=== PATIENT | female | born 1960 | race Caucasian/White ===

== ENCOUNTER → 2022-02-26 11:35 | Outpatient (BNVA) | payer SELFPAY | PROVIDERS: PCP Nurse Practitioner Family; Visit Provider Nurse Practitioner Family | DX: I10 Essential (primary) hypertension (principal); R53.83 Other fatigue; I87.2 Venous insufficiency (chronic) (peripheral) | CPT/HCPCS: 80053; 80061; 84443 ==

== ENCOUNTER 2023-10-23 01:11 | Emergency (ER) | payer SELFPAY ==
[2023-10-23 01:17] VITALS: BP 185/83; PULSE 119; RESP 18; TEMP 39.5; O2SAT 97; BMI 48.7
--- NOTE | 2023-10-23 01:35 | XRR_ITS ---
PROCEDURE INFORMATION: Exam: XR Chest Exam date and time: 10/23/2023 2:18 AM Age: 63 years old Clinical indication: Shortness of breath; Patient HX: SOB with tachycardia TECHNIQUE: Imaging protocol: Radiologic exam of the chest. Views: 1 view. COMPARISON: No relevant prior studies available. FINDINGS: Lungs: Suspect mild pulmonary vascular congestion. Mild perihilar opacities bilaterally, with slight peribronchial thickening. While nonspecific, the overall appearance raises suspicion for mild CHF/interstitial pulmonary edema. Some type of bronchitis/pneumonitis might also be considered. Please correlate clinically. Pleural spaces: No visible pneumothorax. No definite pleural fluid. Heart/Mediastinum: Heart size is within normal limits. Bones/joints: No significant acute finding. XR/XR chest 1V portable [id number] IMPRESSION: 1. Mild bilateral perihilar lung opacities, see above discussion. 2. Other findings discussed above.
[2023-10-23] MEDS: acetaminophen 500 mg Tablet 1000 MG PO (02:17)
--- NOTE | 2023-10-23 02:20 | ED_ITS ---
HPI - General Adult 2 General: Chief complaint: General Medical Stated complaint: sudden tremors arms and hands SOB Time Seen by Provider: 10/23/23 02:08 Source: patient Mode of arrival: ambulatory Limitations: no limitations History of Present Illness: 63-year-old female states that laura s he has been having a fever with some dyspnea she states she is having shaking as well denies any pain. She denies any worsening proving factors. She denies any vomiting or diarrhea. Associated symptoms: Reports dyspnea; Deny chest pain, headache(s), nausea, rash or vomiting Review of Systems 2 Const: Reports: fever(s) and chills; Denies: body aches or change in appetite Eyes: Denies: blurry vision or eye discomfort ENMT: Denies: throat pain or dental pain Card: Denies: chest pain Resp: Reports: dyspnea GI: Denies: abdominal pain, nausea, vomiting or diarrhea : Denies: dysuria Musc: Denies: neck pain or back pain Skin/Breast: Denies: rash Neuro: Denies: headache(s) PFSH ED 2 PFSH: Surgical History Hx of tubal ligation Social History Smoking and tobacco/nicotine status: never used tobacco/nicotine Second hand smoke exposure: No Alcohol intake: never Substance/Drug Use: never Physical Exam 2 Const: COMMON NORMALS: no acute distress, patient oriented x3 and healthy appearing HENMT: COMMON NORMALS: normocephalic and atraumatic HEAD & SCALP: n ormocephalic and atraumatic Eye: COMMON NORMALS: Equal, round and reactive pupils present and EOMs intact bilaterally PUPIL: Yes Equal, round and reactive pupils present Neck/C-Spine: COMMON NORMALS: full ROM and supple Chest: COMMONS NORMALS: normal inspection of the chest Resp: COMMON NORMALS: normal respiratory effort and clear to auscultation bilaterally AUSCULTATION: clear to auscultation bilaterally Cardio: COMMON NORMALS: regular rate, regular rhythm and No murmurs present (Cardio) RATE: regular rate RHYTHM: regular rhythm GI: COMMON NORMALS: Normal to inspection, nondistended, normoactive bowel sounds present, Soft to palpation, non-tender and no masses PALPATION: Yes Soft to palpation Extremity: COMMON NORMALS: normal to inspection and full ROM Neuro: COMMON NORMALS: patient oriented x3, moves all extremities and no focal motor deficits Psych: COMMON NORMALS: mental status grossly normal, Normal thought process present and cooperative THOUGHT PROCESS: Normal thought process present Skin: COMMON NORMALS: no rashes or lesions noted and no wounds GENERAL SKIN EXAM: no rashes or lesions noted Course 2 Vital Signs: Vital signs: Vital Signs Temperature 99.2 F 10/23/23 03:50 Pulse Rate 113 H 10/23/23 02:34 Respiratory Rate 16 10/23/23 02:34 Blood Pressure 147/68 10/23/23 03:50 Pulse Oximetry 97 10/23/23 02:34 Oxygen Delivery Me thod Room Air 10/23/23 01:17 MDM - General Adult Medical Decision Making Patient presents here with fever slight dyspnea x-ray showed a mild pneumonia she is well-appearing here her temperature improved no signs of sepsis feel she stable for discharge we will start her on Keflex she is to follow-up with her PCP and return if worsening. Medical Records I reviewed the patient's medical records. Lab Data I reviewed the patient's lab results. 10/23/23 02:15 10/23/23 02:15 Radiology Impressions Chest X-Ray 10/23/23 01:35 IMPRESSION: 1. Mild bilateral perihilar lung opacities, see above discussion. 2. Other findings discussed above. Laboratory Results WBC 11.75 10^3/uL (3.29-11.43) H 10/23/23 02:15 RBC 4.42 10^6/uL (3.85-5.65) 10/23/23 02:15 Hgb 12.50 g/dL (11.27-16.99) 10/23/23 02:15 Hct 37.1 % (36-47) 10/23/23 02:15 MCV 83.9 fl (85-98) L 10/23/23 02:15 MCH 28.3 pg (27-33) 10/23/23 02:15 MCHC 33.7 g/dL (30-55) 10/23/23 02:15 RDW 13.4 % (12.1-15.1) 10/23/23 02:15 Plt Count 212 10^3/cmm (157-399) 10/23/23 02:15 MPV 9.3 fL (7.4-10.4) 10/23/23 02:15 Neut % (Auto) 92.3 % 10/23/23 02:15 Lymph % (Auto) 3.2 % 10/23/23 02:15 [place] % (Auto) 3.2 % 10/23/23 02:15 Eos % (Auto) 0.6 % 10/23/23 02:15 Baso % (Auto) 0.3 % 10/23/23 02:15 Neut # (Auto) 10.84 10^3/uL (1.8-7.7) H 10/23/23 02:15 Lymph # (Auto) 0.4 10^3/uL (0.8-4.8) L 10/23/23 02:15 [place] # (Auto) 0.4 10^3/uL (0.2-0.9) 10/23/23 02:15 Eos # (Auto) 0.1 10^3/uL (0.0-0.8) 10/23/23 02:15 Baso # (Auto) 0.0 10^3/uL (0.0-0.1) 10/23/23 02:15 Nucleated RBC % (auto) 0 % 10/23/23 02:15 Nucleated RBCs # 0.0 /100WBC 10/23/23 02:15 Sodium 135 mmol/L (136-145) L 10/23/23 02:15 Potassium 3.8 mmol/L (3.5-5.1) 10/23/23 02:15 Chloride 96 mmol/L (98-107) L 10/23/23 02:15 Carbon Dioxide 29 mmol/L (22-29) 10/23/23 02:15 Anion Gap 13.8 (5-19) 10/23/23 02:15 BUN 22 mg/dL (8-23) 10/23/23 02:15 Creatinine 0.7 mg/dL (0.5-0.9) 10/23/23 02:15 GFR Calculation 84.8 mL/min (90-130) L 10/23/23 02:15 Glucose 265 mg/dL (65-115) H 10/23/23 02:15 Calculated Osmolality 293 mOsm/kg (285-295) 10/23/23 02:15 Lactic Acid 1.1 mmol/L (0.5-2.2) 10/23/23 02:15 Calcium 10.0 mg/dL (8.5-10.5) 10/23/23 02:15 Total Bilirubin 0.9 mg/dL (0.15-1.2) 10/23/23 02:15 AST 17 U/L (0-32) 10/23/23 02:15 ALT 15 U/L (0-33) 10/23/23 02:15 Alkaline Phosphatase 126 U/L (35-105) H 10/23/23 02:15 NT-Pro-B Natriuret Pep 321 pg/mL (0-125) H 10/23/23 02:15 Total Protein 7.2 g/dL (6.6-8.7) 10/23/23 02:15 Albumin 3.9 g/dL (3.5-5.2) 10/23/23 02:15 Globulin 3.3 g/dL (1.3-4.6) 10/23/23 02:15 Urine Color Yellow (Yellow) 10/23/23 02:25 Urine Appearance Hazy (CLEAR) A 10/23/23 02:25 Urine pH 8 (5-7) H 10/23/23 02:25 Ur Specific [place] 1.020 (1.005-1.030) 10/23/23 02:25 Urine Protein 3+ (Negative) H 10/23/23 02:25 Urine Glucose (UA) Norm (Normal) 10/23/23 02:25 Urine Ketones Negative (Negative) 10/23/23 02:25 Urine Blood 2+ (Negative) H 10/23/23 02:25 Urine Nitrate Negative (Negative) 10/23/23 02:25 Urine Bilirubin Neg (Negative) 10/23/23 02:25 Prot Sulfosalicylic Acd Positive (Negative) 10/23/23 02:25 Urine Urobilinogen Norm mg/dL (Negative) 10/23/23 02:25 Ur Leukocyte Esterase Trace (Negative) H 10/23/23 02:25 Urine RBC 5-10 /hpf (0-2) H 10/23/23 02:25 Urine WBC 15-25 /hpf (0-5) H 10/23/23 02:25 Ur Squamous Epith Cells 5-10 /hpf (0-5) H 10/23/23 02:25 Amorphous Sediment Trace /hpf 10/23/23 02:25 Urine Bacteria Trace /hpf (NONE) 10/23/23 02:25 Hyaline Casts 0-4 /lpf H 10/23/23 02:25 Urine Mucus 1+ /hpf 10/23/23 02:25 Influenza Type A Ag Negative (Negative) 10/23/23 02:36 Influenza Type B Ag Negative (Negative) 10/23/23 02:36 SARS-CoV-2 Ag (Rapid) Negative (Negative) 10/23/23 02:36 All radiology interpretation(s) finalized by discharge Discharge Plan Discharge Patient Disposition: Home Clinical Impression: Pneumonia Condition: Stable Prescriptions: New cephalexin 500 mg capsule 500 mg PO TID 7 Days Qty: 21 0RF No Action metformin 500 mg tablet See Rx Instructions .ROUTE .COMPLEX Qty: 90 0RF Dose Instruction: Take 1 tablet by mouth once daily Rx Instructions: Take 1 tablet by mouth once daily hydrochlorothiazide 25 mg tablet See Rx Instructions .ROUTE .COMPLEX Qty: 30 0RF Dose Instruction: Take 1 tablet by mouth once daily Rx Instructions: Take 1 tablet by mouth once daily levothyroxine 25 mcg tablet See Rx Instructions .ROUTE .COMPLEX Qty: 90 0RF Dose Instruction: Take 1 tablet by mouth once daily Rx Instructions: Take 1 tablet by mouth once daily Discharge Orders: Discharge ED (Routine); Ordered 10/23/23 Ordered By: Tae Pride Referrals: Flor Brown, [facility]OST [Primary Care Provider] - 4-7 days Discharge Diet: Advance as tolerated Discharge Activity: Resume usual activity Patient Instructions: Pneumonia (ED) Coding Level of Care Code ED [employer] for Rafael Baptiste
[2023-10-23 02:30] LABS: Basophils % 0.3 %; Eosinophils # 0.1 10^3/uL (0.0-0.8); Eosinophils % 0.6 %; Hematocrit 37.1 % (36-47); Lymphocytes # 0.4 10^3/uL (0.8-4.8); Lymphocytes % 3.2 %; Mean Corpuscular HGB Conc 33.7 g/dL (30-55); Mean Corpuscular Hemoglobin 28.3 pg (27-33); Mean Corpuscular Volume 83.9 fl (85-98); Mean Platelet Volume 9.3 fL (7.4-10.4); Monocytes # 0.4 10^3/uL (0.2-0.9); Monocytes % 3.2 %; Neutrophils # 10.84 10^3/uL (1.8-7.7); Neutrophils % 92.3 %; Nucleated Red Blood Cells % 0 %; Platelet Count 212 10^3/cmm (157-399); Red Blood Count 4.42 10^6/uL (3.85-5.65); Red Cell Distribution Width 13.4 % (12.1-15.1); White Blood Count 11.75 10^3/uL (3.29-11.43)
[2023-10-23 02:34] VITALS: BP 193/100; PULSE 113; RESP 16; O2SAT 97
[2023-10-23] MEDS: sodium chloride 0.9% 1,000 ML 999 ML IV (02:36)
[2023-10-23 02:46] LABS: Lactic Sepsis W/Reflex 1.1 mmol/L (0.5-2.2)
[2023-10-23 02:46] LABS: Urine Appearance Hazy (CLEAR); Urine Color Yellow (Yellow); pH Urine 8 (5-7)
[2023-10-23 02:47] LABS: Add Urine Microscopic? YES; Bilirubin Urine Neg (Negative); Blood Urine 2+ (Negative); Glucose Urine UA Norm (Normal); Ketones Urine Negative (Negative); Leukocyte Esterase Urine Trace (Negative); Nitrate Urine Negative (Negative); Protein Urine 3+ (Negative); Sulfosalicylic Acid Urine Positive (Negative); Urobilinogen Urine Norm (Negative)
[2023-10-23 02:49] LABS: Bacteria Urine TRACE /hpf; WBC Urine 15-25 /hpf (0-5)
[2023-10-23 02:50] LABS: Amorphous Sediment Urine TRACE /hpf; Hyaline Casts Urine 0-4 /lpf; Mucus Urine 1+ /hpf
[2023-10-23 02:56] LABS: Alanine Aminotransferase 15 U/L (0-33); Albumin Level 3.9 g/dL (3.5-5.2); Alkaline Phosphatase 126 U/L (35-105); Anion Gap 13.8 (5-19); Aspartate Amino Transferase 17 U/L (0-32); Blood Urea Nitrogen 22 mg/dL (8-23); Carbon Dioxide 29 mmol/L (22-29); Chloride 96 mmol/L (98-107); Globulin 3.3 g/dL (1.3-4.6); Glomerular Filtration Rate 84.8 mL/min (90-130); Glucose 265 mg/dL (65-115); NT Pro B Type Natriuretic Pept 321 pg/mL (0-125); Osmolality Calculated 293 mOsm/kg (285-295); Potassium 3.8 mmol/L (3.5-5.1); Sodium 135 mmol/L (136-145); Total Bilirubin 0.9 mg/dL (0.15-1.2); Total Protein 7.2 g/dL (6.6-8.7)
[2023-10-23 03:02] LABS: Influenza A by IFA Negative (Negative); Influenza B by IFA Negative (Negative); SARS Covid-2 Antigen Negative (Negative)
[2023-10-23 03:16] VITALS: BP 152/106
[2023-10-23 03:50] VITALS: BP 147/68; TEMP 37.3
[2023-10-23] MEDS: cephALEXin 500 mg Capsule PO (04:17)
== END 2023-10-23 04:20 | disposition home or self-care (01) ==
PROVIDERS: Emergency Provider Emergency Medicine; PCP Nurse Practitioner Family
DX: J18.9 Pneumonia, unspecified organism (principal); Z79.84 Long term (current) use of oral hypoglycemic drugs; Z11.52 Encounter for screening for COVID-19
CPT/HCPCS: 36415; 71045; 80053; 81001; 83605; 83880; 85025; 87426; 87804; 96360; 99284; J7030

== ENCOUNTER 2024-08-12 08:37 | Emergency (ER) | payer SELFPAY ==
[2024-08-12 08:49] VITALS: BP 152/109; PULSE 88; RESP 18; TEMP 36.9; O2SAT 97; BMI 46.6
--- NOTE | 2024-08-12 09:06 | USR_ITS ---
PROCEDURE INFORMATION: Exam: US Duplex Left Lower Extremity Veins, Limited Exam date and time: 08/12/2024 9:27 AM Age: 64 years old Clinical indication: Pain; Leg, lower; Left; Additional info: Calf pain TECHNIQUE: Imaging protocol: Real-time duplex ultrasound of the left extremity with 2-D oliver scale, color Doppler flow and spectral waveform analysis including responses to compression and other maneuvers (when performed) with image documentation. Limited exam focused on the left lower extremity veins. COMPARISON: No relevant prior studies available. FINDINGS: Left deep veins: Unremarkable. The common femoral, femoral, proximal profunda femoral and popliteal veins are patent without thrombus. Normal Doppler waveforms. Normal compressibility and augmentation response. Superficial veins: Greater saphenous vein at the saphenofemoral junction is patent without thrombus. Soft tissues: Medial proximal-mid leg fluid hypoechoic collection with sound transmission and low-medium level internal echoes, with surrounding soft tissue echogenic adipose edema US/CV venous duplex [facility] [id number] IMPRESSION: No evidence of deep vein thrombosis. Complicated Page cyst versus hematoma of the lower leg.
[2024-08-12 09:09] VITALS: BP 152/109; PULSE 88; RESP 18; TEMP 36.9; O2SAT 97
--- NOTE | 2024-08-12 09:09 | ED_ITS ---
HPI - Extremity Problem 2 General: Chief complaint: Extremity Problem,Nontraumatic Stated complaint: left leg pain and swelling Time Seen by Provider: 08/12/24 08:49 Source: patient and family Mode of arrival: ambulatory Limitations: no limitations History of Present Illness: This patient made her way to the emergency department this morning because of concern about left calf pain and swelling. She states that she noted current symptoms of have progressed since her last exercise session approximately 2 days ago. She states that this is completed under the direction of her therapist and does involve lower extremity movements such as squats leg raising etc. She states she did not feel any pain or discomfort during a period of her exercise. Over the past couple days she has noted soreness in the posterior left calf with some subjective swelling and perceived soreness. She denies any redness or fever. She denies any difficulty with other symptoms such as shortness of breath fever chills etc. She does have a history of diet-controlled diabetes as well as hyperparathyroidism. She is not taking any medications currently. She has not had any other issues such as vomiting diarrhea or any other symptoms that would suggest fluid loss. She states that she has not previously had any history of thromboembolic disease. MD Complaint: extremity pain and extremity swelling Location: left and lower extremity Associated symptoms: Deny chest pain, fever(s) or rash Related Data Previous Rx's Medication Instructions Recorded hydrochlorothiazide 25 mg tablet See Rx Instructions .Route 05/20/22 .COMPLEX #30 tabs levothyroxine 25 mcg tablet See Rx Instructions .Route 05/20/22 .COMPLEX #90 tabs metformin 500 mg tablet See Rx Instructions .Route 05/20/22 .COMPLEX #90 tabs Allergies Allergy/AdvReac Type Severity Reaction Status Date / Time No Known Allergies Allergy Unverified 03/02/22 08:28 Review of Systems 2 Const: Denies: fever(s) or chills ENMT: Denies: throat pain, odynophagia, nasal discharge or nasal congestion Card: Denies: chest pain, palpitations, irregular heart rhythm or syncope Resp: Denies: dyspnea, productive cough or non-productive cough GI: Denies: abdominal pain : Denies: flank pain, difficulty voiding or dysuria Musc: Reports: extremity pain and extremity swelling; Denies: neck pain, back pain, joint pain or joint swelling Skin/Breast: Denies: rash, pruritus or erythema Neuro: Denies: headache(s), numbness in extremities or weakness in extremities [place]/Lymph: Denies: easy bruising or easy bleeding PFSH ED 2 PFSH: Surgical History Hx of tubal ligation Social History Smoking and tobacco/nicotine status: never used tobacco/nicotine Second hand smoke exposure: No Alcohol intake: never Substance/Drug Use: never Physical Exam 2 Narrative: EXAM NARRATIVE: She is pleasant and interactive and appears to be in no acute distress Const: COMMON NORMALS: no acute distress, patient oriented x3 and alert G ENERAL APPEARANCE: cooperative and comfortable NUTRITIONAL APPEARANCE: obese HENMT: COMMON NORMALS: normocephalic and Normal nasal mucous membranes and turbinates present HEAD & SCALP: normocephalic NOSE: Normal nasal mucous membranes and turbinates present Eye: COMMON NORMALS: Equal, round and reactive pupils present PUPIL: Yes Equal, round and reactive pupils present Neck/C-Spine: COMMON NORMALS: full ROM and no lymphadenopathy Resp: COMMON NORMALS: normal respiratory effort and No use of accessory muscles EFFORT & INSPECTION: Yes able to speak in complete sentences Cardio: COMMON NORMALS: regular rate and Peripheral pulses 2+ throughout R ATE: regular rate PERIPHERAL PULSES: Peripheral pulses 2+ throughout : COMMON NORMALS: Yes no CVA tenderness BLADDER/KIDNEY EXAM: Yes no CVA tenderness Back/Pelvis: COMMON NORMALS: no CVA tenderness and straight leg raise negative bilaterally Extremity: GENERAL: Yes normal exam except as noted OTHER: Extremity examination with attention of the left lower extremity reveals normal- appearing lower extremities she does have what appears to be symmetrical sized lower extremities. There is no evidence of redness discoloration or other skin findings noted. She has firmness and palpable tenderness in the posterior left mid and superior calf. She has a negative Homans. She has no other skin findings or decreased pulses in the lower extremities. She has palpable dorsalis pedis and posterior tibial and good capillary refill. The ankle joint is unremarkable and has no tenderness or laxity. The knee joint shows no effusions. There is no laxity to varus or valgus stress she has negative anterior and posterior drawer. The left hip has no restriction of range of motion or tenderness. There is no tenderness to palpation in the left thigh. Neuro: COMMON NORMALS: patient oriented x3, moves all extremities, no focal motor deficits and no sensory deficits noted SENSORIUM/ORIENTATION: Yes alert Psych: COMMON NORMALS: mental status grossly normal Skin: COMMON NORMALS: no rashes or lesions noted, no wounds and turgor normal GENERAL SKIN EXAM: no rashes or lesions noted and turgor normal Course 2 Reevaluation(s): Reevaluation #1: Patient stable and unchanged. Discussed current findings their implications and limitations and expected course of both she and family. At this point no evidence of a DVT. Her D-dimer slightly elevated is likely due to this being a possible hematoma as noted in ultrasound report however more likely a Page's cyst. Also discussed return precautions. Time: 11:28 Vital Signs: Vital signs: Vital Signs Temperature 98.4 F 08/12/24 09:09 Pulse Rate 67 08/12/24 11:05 Respiratory Rate 18 08/12/24 09:09 Blood Pressure 179/87 08/12/24 11:05 Pulse Oximetry 97 08/12/24 11:05 Oxygen Delivery Me thod Room Air 08/12/24 11:05 MDM - Extremity (Nontraumatic) Medical Decision Making This patient presented as noted in the HPI. Particular concern was about a possible DVT. She does engage in regular exercise program with the physical therapist. Clinical exam was nonspecific there was notable tenderness in the superior calf extending into the post anterior fossa of the left knee. There is no evidence of significant effusion anteriorly but she has large soft tissue. D-dimer was slightly elevated and ultrasound was obtained which did not reveal any evidence of a DVT but did show likely Page's cyst although there was an inclusion of possible hematoma in the superior gastroc region. She has no evidence of an internal derangement of her knee at this time there is no laxity disruption in any of her muscular function etc. No evidence of trauma to suggest the latter. At this point no evidence of an ongoing emergency medical condition. We discussed expected course and follow-up considerations. Also discussed hot and cold therapy to the area. Lab Data I reviewed the patient's lab results. 08/12/24 09:14 Radiology Impressions Venous Duplex 08/12/24 09:06 IMPRESSION: No evidence of deep vein thrombosis. Complicated Page cyst versus hematoma of the lower leg. Laboratory Results D-Dimer 0.79 ug/mLFEU (0-0.59) H 08/12/24 09:14 Sodium 140 mmol/L (136-145) 08/12/24 09:14 Potassium 4.0 mmol/L (3.5-5.1) 08/12/24 09:14 Chloride 103 mmol/L (98-107) 08/12/24 09:14 Carbon Dioxide 27 mmol/L (22-29) 08/12/24 09:14 Anion Gap 14.0 (5-19) 08/12/24 09:14 BUN 26 mg/dL (8-23) H 08/12/24 09:14 Creatinine 0.6 mg/dL (0.5-0.9) 08/12/24 09:14 GFR Calculation 101.0 mL/min (90-130) 08/12/24 09:14 Glucose 195 mg/dL (65-115) H 08/12/24 09:14 Calculated Osmolality 300 mOsm/kg (285-295) H 08/12/24 09:14 Calcium 9.2 mg/dL (8.5-10.5) 08/12/24 09:14 All radiology interpretation(s) finalized by discharge Discharge Plan Discharge Patient Disposition: Home Clinical Impression: Page's cyst of knee Qualifiers: Laterality: left Qualified Code(s): M71.22 - Synovial cyst of popliteal space [Page], left knee Condition: Stable Prescriptions: No Action metformin 500 mg tablet See Rx Instructions .ROUTE .COMPLEX Qty: 90 0RF Dose Instruction: Take 1 tablet by mouth once daily Rx Instructions: Take 1 tablet by mouth once daily hydrochlorothiazide 25 mg tablet See Rx Instructions .ROUTE .COMPLEX Qty: 30 0RF Dose Instruction: Take 1 tablet by mouth once daily Rx Instructions: Take 1 tablet by mouth once daily levothyroxine 25 mcg tablet See Rx Instructions .ROUTE .COMPLEX Qty: 90 0RF Dose Instruction: Take 1 tablet by mouth once daily Rx Instructions: Take 1 tablet by mouth once daily Discharge Orders: Discharge ED (Routine); Ordered 08/12/24 Ordered By: Nando Andrews Discharge Diet: Usual diet Discharge Activity: Increase activity as tolerated Patient Instructions: Opioid Safety, Pain Management Activity Restrictions/Additional Instructions: As we discussed while you are in the emergency department you do not have an evidence of a blood clot in your left leg at this time. You do have a condition which is likely due to a Page's cyst which is a collection of fluid in a sac behind your knee and in your upper or lower leg. We recommend hot and cool packs as we discussed in the emergency department. He may resume a graduated activity program with your therapist. If you develop worsening symptoms that, the condition does not improve, you develop any new or concerning symptoms you should return to the emergency department for reevaluation. Coding Level of Care Code ED [employer] for Rafael Baptiste
[2024-08-12 09:37] LABS: D Dimer 0.79 ug/mLFEU (0-0.59)
[2024-08-12 09:43] LABS: Blood Urea Nitrogen 26 mg/dL (8-23); Calcium 9.2 mg/dL (8.5-10.5); Carbon Dioxide 27 mmol/L (22-29); Chloride 103 mmol/L (98-107); Creatinine Clr Calc Pharmacy 133.3471; Glucose 195 mg/dL (65-115); Osmolality Calculated 300 mOsm/kg (285-295); Sodium 140 mmol/L (136-145)
[2024-08-12 10:26] VITALS: BP 174/105; PULSE 70; O2SAT 96
[2024-08-12 10:31] VITALS: BP 185/74; PULSE 70; O2SAT 95
[2024-08-12 11:05] VITALS: BP 179/87; PULSE 67; O2SAT 97
[2024-08-12 11:44] VITALS: BP 179/80; PULSE 69; O2SAT 96
== END 2024-08-12 11:45 | disposition home or self-care (01) ==
PROVIDERS: Emergency Provider Emergency Medicine
DX: M71.22 Synovial cyst of popliteal space [Baker], left knee (principal)
CPT/HCPCS: 80048; 85378; 93971; 99284

== ENCOUNTER 2024-10-14 16:59 | Emergency (ER) | payer BC, SELFPAY ==
[2024-10-14] VITALS (8 sets, daily range): BP systolic 163–239; BP diastolic 63–103; PULSE 74–100; RESP 14–18; TEMP 36.7; O2SAT 94–97; BMI 46.5
--- NOTE | 2024-10-14 17:05 | XRR_ITS ---
PROCEDURE INFORMATION: Exam: XR Chest Exam date and time: 10/14/2024 6:24 PM Age: 64 years old Clinical indication: Pain; Chest pressure; Additional info: Cp TECHNIQUE: Imaging protocol: Radiologic exam of the chest. Views: 1 view. COMPARISON: CR XR chest 1V portable [id number] 10/23/2023 2:18 AM FINDINGS: Lungs: Unremarkable. No consolidation. Pleural spaces: Unremarkable. No pleural effusion. No pneumothorax. Heart/Mediastinum: Unremarkable. No cardiomegaly. Bones/joints: Unremarkable. XR/XR chest 1V portable [id number] IMPRESSION: No acute findings.
--- NOTE | 2024-10-14 17:08 | ECG_ITS ---
[facility] Date: 2024-10-14 Pat Name: Isidra Bolaños Department: Room: Gender: Female Air Technician: : 1960 Requested By: Tae Pride Order Number: [id number] Saul MD: Mona Trevino M.D. Measurements Intervals [place] Rate: 87 P: 43 WI: 142 QRS: -58 QRSD: 117 T: 61 QT: 359 QTc: 433 Interpretive Statements SINUS RHYTHM WITH OCCASIONAL VENTRICULAR PREMATURE COMPLEXES LEFT ANTERIOR FASCICULAR BLOCK [QRS AXIS <= -45, QR IN I, RS IN II] MODERATE VOLTAGE CRITERIA FOR LVH, CONSIDER NORMAL VARIANT [MEETS CRITERIA IN ONE OF: R(aVL), S(V1), R(V5), R(V5/V6)+S(V1)] No previous ECG available for comparison Electronically Signed On 10-16-2024 23:57:30 ELECTRICAL DESIGNER by Mona Trevino M.D. [email or web address]
[2024-10-14 18:20] LABS: Basophils # 0.1 10^3/uL (0.0-0.1); Basophils % 0.9 %; Eosinophils # 0.3 10^3/uL (0.0-0.8); Eosinophils % 4.4 %; Hematocrit 34.7 % (36-47); Lymphocytes # 1.5 10^3/uL (0.8-4.8); Lymphocytes % 19.3 %; Mean Corpuscular HGB Conc 32.3 g/dL (30-55); Mean Corpuscular Hemoglobin 27.1 pg (27-33); Mean Corpuscular Volume 83.8 fl (85-98); Mean Platelet Volume 9.3 fL (7.4-10.4); Monocytes # 0.6 10^3/uL (0.2-0.9); Monocytes % 8.3 %; Neutrophils # 5.05 10^3/uL (1.8-7.7); Neutrophils % 66.8 %; Nucleated Red Blood Cells % 0 %; Platelet Count 251 10^3/cmm (157-399); Red Blood Count 4.14 10^6/uL (3.85-5.65); Red Cell Distribution Width 13.3 % (12.1-15.1); White Blood Count 7.56 10^3/uL (3.29-11.43)
[2024-10-14 18:35] LABS: D Dimer 0.72 ug/mLFEU (0-0.59)
[2024-10-14 18:39] LABS: Troponin(5th) Baseline 21 ng/L (0-10)
[2024-10-14 18:57] LABS: Alanine Aminotransferase 15 U/L (0-33); Albumin Level 3.5 g/dL (3.5-5.2); Alkaline Phosphatase 162 U/L (35-105); Anion Gap 13.1 (5-19); Aspartate Amino Transferase 18 U/L (0-32); Blood Urea Nitrogen 23 mg/dL (8-23); Carbon Dioxide 28 mmol/L (22-29); Chloride 102 mmol/L (98-107); Creatinine Clr Calc Pharmacy 103.2278; Globulin 2.3 g/dL (1.3-4.6); Glomerular Filtration Rate 72.4 mL/min (90-130); Glucose 141 mg/dL (65-115); NT Pro B Type Natriuretic Pept 919 pg/mL (0-125); Osmolality Calculated 294 mOsm/kg (285-295); Potassium 4.1 mmol/L (3.5-5.1); Sodium 139 mmol/L (136-145); Total Bilirubin 0.2 mg/dL (0.15-1.2); Total Protein 5.8 g/dL (6.6-8.7)
--- NOTE | 2024-10-14 19:08 | ED_ITS ---
HPI - SOB/Dyspnea 2 General: Chief Complaint: Shortness of Breath/Dyspnea Stated Complaint: b/phigh/Sob/swollen L leg Time Seen by Provider: 10/14/24 18:29 Source: patient Mode of arrival: ambulatory Limitations: no limitations History of Present Illness: HPI Narrative: 64yo female presents with family for alex luation of shortness of breath that has been ongoing for the past several days. Patient reports that she woke up with swelling and pain in her left leg. States that she was seen here 2 months ago and diagnosed with a Page's cyst in the leg. Reports that she has been going to the gym and exercising recently and believes she may have injured her patella tendon. States that she has not really done much in the past couple of days. States that she has also been sleeping in more than she typically would. Patient reports that last week when she went to the gym she was noticing that she was more short of breath than typical. Patient also reports that her blood pressure was elevated at home today. States that it was a systolic of 200, but she did not feel bad so she just said it to the side. States that she checked it again this afternoon after changing batteries in the machine and it was still over 200. Patient reports that she does not take any blood pressure medication, but she did many years ago where she believes she took amlodipine. Patient denies cough, difficulty breathing, chest pain, abdominal pain, vomiting, diarrhea, recent illness, any other concerns at this time. Associated symptoms: Deny abdominal pain, chest pain, fever(s) or vomiting Related Data Home Medications Medication Instructions Recorded Confirmed ibuprofen 200 mg tablet (Advil) 600 - 800 mg PO Q6H PRN Pain 08/12/24 08/12/24 Allergies Allergy/AdvReac Type Severity Reaction Status Date / Time No Known Allergies Allergy Verified 10/14/24 17:17 Review of Systems 2 Const: Denies: fever(s) or chills Card: Denies: chest pain Resp: Reports: dyspnea GI: Denies: abdominal pain, vomiting or diarrhea Musc: Reports: extremity swelling (left leg, left arm) Neuro: Denies: headache(s) or weakness in extremities PFSH ED 2 PFSH: Surgical History Hx of tubal ligation Social History Smoking and tobacco/nicotine status: never used tobacco/nicotine Second hand smoke exposure: No Alcohol intake: never Substance/Drug Use: never Physical Exam 2 Const: COMMON NORMALS: no acute distress, patient oriented x3 and alert N UTRITIONAL APPEARANCE: obese ORIENTATION/CONSCIOUSNESS: Yes oriented to time OTHER: Patient is sitting upright on the stretcher no acute distress. She is able to give history with no difficulty she is interactive with exam appropriately. Family is at bedside HENMT: COMMON NORMALS: normocephalic HEAD & SCALP: normocephalic Chest: CHEST: Yes Symmetrical chest wall rise Resp: COMMON NORMALS: normal respiratory effort and clear to auscultation bilaterally EFFORT & INSPECTION: Yes able to speak in complete sentences A USCULTATION: clear to auscultation bilaterally Cardio: COMMON NORMALS: regular rate and regular rhythm RATE: regular rate RHYTHM: regular rhythm Extremity: LEFT UPPER EXTREMITY: Yes upper arm (no appreciable swelling noted) LEFT LOWER EXTREMITY: Yes lower leg (localized swelling to indicated area) EXTREMITY IMAGE (FRONT): 1. localized swelling. Nontender. No erythema Neuro: COMMON NORMALS: patient oriented x3 SENSORIUM/ORIENTATION: Yes alert and Yes oriented to time Psych: COMMON NORMALS: cooperative Course 2 ED course: D-dimer noted to be 0.72. Baseline troponin at 21 with a proBNP of 919. Vital Signs: Vital signs: Vital Signs Temperature 98.0 F 10/14/24 17:13 Pulse Rate 75 10/14/24 21:41 Respiratory Rate 14 10/14/24 21:41 Blood Pressure 184/63 10/14/24 21:41 Pulse Oximetry 94 10/14/24 21:41 Oxygen Delivery Me thod Room Air 10/14/24 17:13 MDM - SOB/Dyspnea Medical Decision Making 64yo female here with family for evaluation of shortness of breath that has been ongoing for the past several days. Patient reports that she woke up with swelling and pain in her left leg. States that she was seen here 2 months ago and diagnosed with a Page's cyst in the leg. Reports that she has been going to the gym and exercising recently and believes she may have injured her patella tendon. States that she has not really done much in the past couple of days. States that she has also been sleeping in more than she typically would. Patient reports that last week when she went to the gym she was noticing that she was more short of breath than typical. Patient also reports that her blood pressure was elevated at home today. States that it was a systolic of 200, but she did not feel bad so she just said it to the side. States that she checked it again this afternoon after changing batteries in the machine and it was still over 200. Patient reports that she does not take any blood pressure medication, but she did many years ago where she believes she took amlodipine. Patient denies cough, difficulty breathing, chest pain, abdominal pain, vomiting, diarrhea, recent illness, any other concerns at this time. Patient is nontoxic in appearance. Vital signs are stable. No leukocytosis. D-dimer is elevated at 0.72. Baseline troponin is noted to be 21 with a 2-hour troponin of 19.3. proBNP is 919. Chest x-ray is grossly unremarkable. EKG does show sinus rhythm with occasional PVC, no change during ED stay. Given the elevated dimer and dyspnea, proceeded with CTA of the chest. CTA is negative for pulmonary embolism and aortic dissection. Discussed these findings with patient. Medical Records I reviewed the patient's medical records. Lab Data I reviewed the patient's lab results. 10/14/24 18:06 10/14/24 18:06 Labs/Radiology: Radiology Impressions Chest X-Ray 10/14/24 17:05 IMPRESSION: No acute findings. Chest CTA 10/14/24 19:41 IMPRESSION: 1. Negative exam for pulmonary embolus and aortic dissection. 2. Mosaic attenuation of the lung parenchyma which may be related to air trapping or mild alveolar edema. 3. Nonspecific mediastinal lymphadenopathy. Etiology not discerned on this exam. These lymph nodes may be reactive. 4. Splenomegaly. 5. Atherosclerosis including coronary artery calcification. Laboratory Results WBC 7.56 10^3/uL (3.29-11.43) 10/14/24 18:06 RBC 4.14 10^6/uL (3.85-5.65) 10/14/24 18:06 Hgb 11.20 g/dL (11.27-16.99) L 10/14/24 18:06 Hct 34.7 % (36-47) L 10/14/24 18:06 MCV 83.8 fl (85-98) L 10/14/24 18:06 MCH 27.1 pg (27-33) 10/14/24 18:06 MCHC 32.3 g/dL (30-55) 10/14/24 18:06 RDW 13.3 % (12.1-15.1) 10/14/24 18:06 Plt Count 251 10^3/cmm (157-399) 10/14/24 18:06 MPV 9.3 fL (7.4-10.4) 10/14/24 18:06 Neut % (Auto) 66.8 % 10/14/24 18:06 Lymph % (Auto) 19.3 % 10/14/24 18:06 [place] % (Auto) 8.3 % 10/14/24 18:06 Eos % (Auto) 4.4 % 10/14/24 18:06 Baso % (Auto) 0.9 % 10/14/24 18:06 Neut # (Auto) 5.05 10^3/uL (1.8-7.7) 10/14/24 18:06 Lymph # (Auto) 1.5 10^3/uL (0.8-4.8) 10/14/24 18:06 [place] # (Auto) 0.6 10^3/uL (0.2-0.9) 10/14/24 18:06 Eos # (Auto) 0.3 10^3/uL (0.0-0.8) 10/14/24 18:06 Baso # (Auto) 0.1 10^3/uL (0.0-0.1) 10/14/24 18:06 Nucleated RBC % (auto) 0 % 10/14/24 18:06 Nucleated RBCs # 0.0 /100WBC 10/14/24 18:06 D-Dimer 0.72 ug/mLFEU (0-0.59) H 10/14/24 18:06 Sodium 139 mmol/L (136-145) 10/14/24 18:06 Potassium 4.1 mmol/L (3.5-5.1) 10/14/24 18:06 Chloride 102 mmol/L (98-107) 10/14/24 18:06 Carbon Dioxide 28 mmol/L (22-29) 10/14/24 18:06 Anion Gap 13.1 (5-19) 10/14/24 18:06 BUN 23 mg/dL (8-23) 10/14/24 18:06 Creatinine 0.8 mg/dL (0.5-0.9) 10/14/24 18:06 GFR Calculation 72.4 mL/min (90-130) L 10/14/24 18:06 Glucose 141 mg/dL (65-115) H 10/14/24 18:06 Calculated Osmolality 294 mOsm/kg (285-295) 10/14/24 18:06 Calcium 10.0 mg/dL (8.5-10.5) 10/14/24 18:06 Total Bilirubin 0.2 mg/dL (0.15-1.2) 10/14/24 18:06 AST 18 U/L (0-32) 10/14/24 18:06 ALT 15 U/L (0-33) 10/14/24 18:06 Alkaline Phosphatase 162 U/L (35-105) H 10/14/24 18:06 Troponin T Baseline 21 ng/L (0-10) H 10/14/24 18:06 Troponin T 120 Minute 19.33 ng/L (0-10) H 10/14/24 19:55 Delta Troponin T -1.67 ABS# (0-10) L 10/14/24 19:55 NT-Pro-B Natriuret Pep 919 pg/mL (0-125) H 10/14/24 18:06 Total Protein 5.8 g/dL (6.6-8.7) L 10/14/24 18:06 Albumin 3.5 g/dL (3.5-5.2) 10/14/24 18:06 Globulin 2.3 g/dL (1.3-4.6) 10/14/24 18:06 XR interpretation done by ED provider, pending radiology final review Discharge Plan Discharge Patient Disposition: Home Clinical Impression: Dyspnea on exertion, Localized swelling of left lower leg Hypertension Qualifiers: Hypertension type: unspecified Qualified Code(s): I10 - Essential (primary) hypertension Condition: Stable Prescriptions: No Action ibuprofen [Advil] 200 mg Tablet 600 - 800 mg PO Q6H PRN (Reason: Pain) Discharge Orders: Discharge ED (Routine); Ordered 10/14/24 Ordered By: Marco Dias Discharge Diet: Usual diet Discharge Activity: Increase activity as tolerated Patient Instructions: Hypertension (ED), Dyspnea Scale and Exercise (ED) Activity Restrictions/Additional Instructions: Your blood pressure did decrease while in the emergency department without intervention There was no sign of a blood clot in your lungs noted on the CT scan today Please keep your previously scheduled appointment with primary care for Tuesday. Notify them of your ER visit as well as your variable blood pressure Please see provided handout with information about dyspnea entheses shortness of breath with exertion) and hypertension Return to the emergency department if any rapid worsening symptoms and as needed Coding Level of Care Code ED Restaurant Delivery Driver for Rafael Baptiste
--- NOTE | 2024-10-14 19:12 | ECG_ITS ---
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
--- NOTE | 2024-10-14 19:41 | CTR_ITS ---
PROCEDURE INFORMATION: Exam: CTA Chest With Contrast Exam date and time: 10/14/2024 8:10 PM Age: 64 years old Clinical indication: Abnormal findings; Abnormal diagnostic tests; Elevated d-dimer; Shortness of breath; Patient HX: SOB with exertion. Dimer 0.72. ; Additional info: Dyspnea, + dimer TECHNIQUE: Imaging protocol: Computed tomographic angiography of the chest with contrast. Exam focused on the arteries. 3D rendering (Not supervised by radiologist): MIP and/or 3D reconstructed images were created by the technologist. Radiation optimization: All CT scans at this facility use at least one of these dose optimization techniques: automated exposure control; mA and/or kV adjustment per patient size (includes targeted exams where dose is matched to clinical indication); or iterative reconstruction. Contrast material: OMNI 350; Contrast volume: 64 ml; Contrast route: INTRAVENOUS (IV); COMPARISON: CR (CHEST, ) 10/14/2024 6:24 PM RADIATION DOSE METRICS: Total DLP (mGy-cm): 449.83 FINDINGS: Pulmonary arteries: Normal. No pulmonary emboli. Aorta: Calcific plaque involves the thoracic aorta and coronary arteries. The thoracic aorta is free of aneurysm and dissection. Lungs: Mosaic attenuation of the lung parenchyma present which may be related to air trapping or mild alveolar edema. Pleural spaces: Unremarkable. No pneumothorax. No pleural effusion. Heart: The heart is enlarged. Lymph nodes: Enlarged mediastinal lymph nodes present measuring up to 1.3 cm in short axis. Etiology not discerned on this exam. No axillary lymphadenopathy. Spleen: The visualized portions of the upper abdomen demonstrates splenomegaly measuring 13.3 cm in length. Bones/joints: Mild degenerative changes involve the spine. Soft tissues: Unremarkable. CT/CT angio chest PE protcl [id number] IMPRESSION: 1. Negative exam for pulmonary embolus and aortic dissection. 2. Mosaic attenuation of the lung parenchyma which may be related to air trapping or mild alveolar edema. 3. Nonspecific mediastinal lymphadenopathy. Etiology not discerned on this exam. These lymph nodes may be reactive. 4. Splenomegaly. 5. Atherosclerosis including coronary artery calcification.
[2024-10-14] MEDS: iohexol 350 mg/mL 500 mL Btl (per mL) IV (20:11)
[2024-10-14 20:36] LABS: Troponin 5 2HR 19.33 ng/L (0-10)
[2024-10-14 20:37] LABS: Troponin 5 2HR Delta -1.67 ABS# (0-10)
== END 2024-10-14 21:43 | disposition home or self-care (01) ==
PROVIDERS: Emergency Medicine; Emergency Provider Nurse Practitioner
DX: R06.00 Dyspnea, unspecified (principal); M79.89 Other specified soft tissue disorders; I10 Essential (primary) hypertension
CPT/HCPCS: 36415; 71045; 71275; 80053; 83880; 84484; 85025; 85378; 93005; 99285

== ENCOUNTER 2024-10-31 08:26 | Outpatient (CLI) | payer BC, MEDICAID, SELFPAY ==
--- NOTE | 2024-10-31 08:28 | MM_ITS ---
WS: [id number] SCREENING DIGITAL BREAST TOMOSYNTHESIS MAMMOGRAM WITH CAD HISTORY: SCREENING COMPARISON: None available. Bilateral CC and MLO with tomosynthesis and synthetic mammography submitted. Computer aided detection analyzed. Breast composition: There are scattered areas of fibroglandular density. High density mass medial RIG HT breast near 3:00 at a middle depth is identified. Mass measures 8 x 9 x 7 mm. No associated calcif ications or distortion. Benign calcifications in the central LEFT breast. MM/MM scr BI tomosynthesis [id number] IMPRESSION: BI-RADS: 0 - Incomplete: Need additional imaging evaluation. FOLLOW UP: Need Additional Imaging Recommendation: Limited RIGHT breast ultrasound, 2-4 o'clock.
== END 2024-10-31 08:27 | disposition home or self-care (01) ==
LOC: RAD 08:27
PROVIDERS: PCP Nurse Practitioner Family; Visit Provider Nurse Practitioner Family
DX: Z12.31 Encounter for screening mammogram for malignant neoplasm of breast (principal); R92.323 Mammographic fibroglandular density, bilateral breasts; N63.15 Unspecified lump in the right breast, overlapping quadrants; R92.1 Mammographic calcification found on diagnostic imaging of breast
CPT/HCPCS: 77063; 77067

== ENCOUNTER → 2024-11-07 10:33 | Outpatient (BNVA) | payer BC, MEDICAID, SELFPAY | PROVIDERS: PCP Nurse Practitioner Family; Visit Provider Student in an Organized Health Care Education/Training Program | DX: M71.22 Synovial cyst of popliteal space [Baker], left knee (principal); M25.562 Pain in left knee; M17.12 Unilateral primary osteoarthritis, left knee; R03.0 Elevated blood-pressure reading, without diagnosis of hypertension | CPT/HCPCS: 73560; 73565 ==

== ENCOUNTER 2024-11-13 07:26 | Outpatient (CLI) | payer BC, MEDICAID, SELFPAY ==
--- NOTE | 2024-11-13 07:43 | US_ITS ---
WS: [id number] ULTRASOUND RIGHT BREAST HISTORY: ABNORMAL MAMMOGRAM,RIGHT COMPARISON: Mammogram 10/31/2024 TECHNIQUE: 2-D and Doppler. Slightly lobulated oval mass with a few low-level echoes in the RIGHT breast at 3:00, 6 cm from the nipple. This does correspond in size and location to the mammographic finding. Mass measures 7 x 5 x 10 mm. Mild through transmission. No increased vascularity. US/US breast RT limited* [id number] IMPRESSION: BI-RADS: 2- Benign FOLLOW-UP: 1 Year Follow-up Mass on mammography corresponds to a cyst by ultrasound. Recommend return to an nual screening mammography.
== END 2024-11-13 07:27 | disposition home or self-care (01) ==
PROVIDERS: PCP Nurse Practitioner Family; Visit Provider Nurse Practitioner Family
DX: R92.8 Other abnormal and inconclusive findings on diagnostic imaging of breast (principal); N63.15 Unspecified lump in the right breast, overlapping quadrants
CPT/HCPCS: 76642

== ENCOUNTER → 2024-12-05 07:59 | Outpatient (BNVA) | payer BC, MEDICAID, SELFPAY | PROVIDERS: PCP Nurse Practitioner Family; Visit Provider Student in an Organized Health Care Education/Training Program | DX: M75.42 Impingement syndrome of left shoulder (principal); M24.012 Loose body in left shoulder; S46.812A Strain of other muscles, fascia and tendons at shoulder and upper arm level, left arm, initial encounter; X58.XXXA Exposure to other specified factors, initial encounter | CPT/HCPCS: 73030 ==

== ENCOUNTER 2025-04-26 07:22 | Outpatient (CLI) | payer BC, MEDICAID, SELFPAY ==
--- NOTE | 2025-04-26 07:45 | USCV_ITS ---
Isidra Bolaños Age: 64 Gender: F : 1960 Exam Date: 04/26/2025 07:53 Ordering Phys: Naa Lang DO Technologist: Dorian Sotelo Exam Location: [facility] [place] Indication: orthopnea BP: 201 / 84 HR: 80 Rhythm: Sinus Technical Quality: MEASUREMENTS (Male / Female) Normal Values 2D ECHO LV Diastolic Diameter PLAX 5.2 cm 4.2 - 5.9 / 3.9 - 5.3 cm IVS Diastolic Thickness 1.1 cm 0.6 - 1.0 / 0.6 - 0.9 cm IVS Systolic Thickness 2.0 cm LVPW Diastolic Thickness 1.1 cm 0.6 - 1.0 / 0.6 - 0.9 cm LVPW Systolic Thickness 2.1 cm LVOT Diameter 2.0 cm LV Ejection Fraction 2D Teich 68.1 % LV Ejection Fraction MOD 4C 70.0 % LV Ejection Fraction MOD 2C 69.7 % LV Ejection Fraction 2C AL 71.8 % LA Diameter 3.0 cm RA Systolic Volume 4C AL 24.5 ml RA Systolic Volume 4C MOD 24.4 ml LA Sys Volume AL 55.4 cm cubed LA Sys Volume Index AL 21.5 cm cubed/m squared Aorta at Sinotubular Diameter 2.5 cm IVC Diameter 1.6 cm M-MODE LA Ao Ratio MM 1.2 AV Cusp Separation MM 1.6 cm DOPPLER AV Peak Velocity 197.7 cm/s LVOT Peak Velocity 110.0 cm/s AV Area Cont Eq vti 1.8 cm squared AV Area Cont Eq pk 1.8 cm squared MV Peak Velocity 154.0 cm/s MV Area PHT 5.1 cm squared Mitral E to A Ratio 0.8 TV Peak Velocity 267.5 cm/s TR Peak Velocity 325.0 cm/s TR Peak Gradient 42.3 mmHg TR Mean Velocity 254.0 cm/s TR Mean Gradient 28.0 mmHg TR Velocity Time Integral 85.9 cm PV Peak Velocity 137.3 cm/s RV Ejection Time 0.4 s FINDINGS Left Ventricle Normal left ventricular size and systolic function, EF 68%. Mild concentric left ventricular hypertrophy. Grade 2 left ventricular diastolic dysfunction. Right Ventricle The right ventricle is normal in size and function. Right Atrium The right atrium is normal in size. Left Atrium The left atrium is normal in size. Mitral Valve Structurally normal mitral valve without stenosis or prolapse. There is no mitral regurgitation. Aortic Valve There is aortic valve sclerosis without stenosis. No regurgitation. Tricuspid Valve Structurally normal tricuspid valve. No tricuspid valve stenosis. Trace tricuspid valve regurgitation. Pulmonary artery systolic pressure is normal. Pulmonic Valve Structurally normal pulmonic valve without significant stenosis. There is no pulmonic regurgitation. Pericardium Normal pericardium without effusion. Aorta Normal aortic root and ascending aorta dimension. IVC The inferior vena cava appears normal. CONCLUSIONS 1. Normal left ventricular size and systolic function, EF 68% 2. Mild concentric left ventricular hypertrophy 3. Grade 2 left ventricular diastolic dysfunction 4. Aortic valve sclerosis without stenosis or regurgitation. 5. Normal pulmonary artery pressure. Negro [place]rola (Electronically Signed) Final Date: 26 April 2025 15:46 S
== END 2025-04-26 07:23 | disposition home or self-care (01) ==
LOC: RAD 07:23
PROVIDERS: PCP Nurse Practitioner Family; Visit Provider Family Medicine
DX: R06.01 Orthopnea (principal); R60.0 Localized edema; R89.1 Abnormal level of hormones in specimens from other organs, systems and tissues; I51.7 Cardiomegaly; R93.1 Abnormal findings on diagnostic imaging of heart and coronary circulation; I35.8 Other nonrheumatic aortic valve disorders
CPT/HCPCS: 93306

== ENCOUNTER 2025-07-05 09:52 | Outpatient (CLI) | payer BC, MEDICAID, SELFPAY ==
--- NOTE | 2025-07-05 10:02 | XR_ITS ---
WS: [id number] XR chest 2V* [id number] REASON FOR EXAM: ACUTE COUGH FINDINGS: The chest is unchanged compared to 10/14/2024. Mild tortuosity and ectasia of the aortic arch and thoracic aorta with. Normal heart size. Calcified granulomatous disease bilaterally. No acute pulmonary parenchymal or pleural abnormality. Mild degenerative spondylosis in the mid and lower thoracic spine. XR/XR chest 2V* [id number] IMPRESSION: Stable chest without acute abnormality.
== END 2025-07-05 09:53 | disposition home or self-care (01) ==
LOC: RAD 09:55
PROVIDERS: PCP Family Medicine; Visit Provider Family Medicine
DX: R05.1 Acute cough (principal); I77.810 Thoracic aortic ectasia; J84.10 Pulmonary fibrosis, unspecified; M47.815 Spondylosis without myelopathy or radiculopathy, thoracolumbar region
CPT/HCPCS: 71046